=== PATIENT | female | born 1960 | race Caucasian/White ===

== ENCOUNTER 2016-12-22 15:50 | Emergency (ER) | payer SELFPAY ==
[~2016-12-22 15:50] MED LIST: CELEBREX200 MG PO; EFFEXOR25 MG PO; LYRICA100 MG PO; PREDNISONE20 MG PO; PROTONIX40 MG PO; VICODIN EQUIVAL1 TAB PO
--- NOTE | 2016-12-22 17:13 | DIAGNOSTIC IMAGING REPORT ---
PROCEDURE: XR ABD SERIES 2V ABD/1V CHEST INDICATION: ABDOMINAL PAIN TECHNIQUE: AP supine and upright views with PA view chest. COMPARISON: CT abdomen and pelvis 06/07/2015 FINDINGS: ABDOMEN: Bowel pattern is normal. No evidence of free air. Soft tissues and osseous structures are normal. CHEST: Lungs are clear. Heart and mediastinum are normal. Thorax is normal. IMPRESSION: 1. Negative acute abdomen series.
--- NOTE | 2016-12-22 17:56 | DIAGNOSTIC IMAGING REPORT ---
PROCEDURE: US ABDOMEN ULTRASOUND-LIMITED INDICATION: RUQ PAIN TECHNIQUE: Shelton scale and color Doppler sonographic images of the abdomen were obtained without comparison. COMPARISON: Abdominal CT 06/07/2015 FINDINGS: The liver is normal in size, contour, and echotexture. No mass or intrahepatic biliary dilatation. The gallbladder is normal without stones or sludge. The wall is normal thickness measuring 2.2 mm No pericholecystic fluid or Torres sign. The extrahepatic common duct is normal measuring 3.5 mm The pancreas was not well seen. The proximal abdominal aorta is normal in its course and caliber. The retrohepatic inferior vena cava is patent. There is appropriate hepatopetal flow in the portal vein. The right kidney measures 10 cm in length. IMPRESSION: 1. Normal abdominal ultrasound. pancreas not well seen.
--- NOTE | 2016-12-22 19:03 | DIAGNOSTIC IMAGING REPORT ---
PROCEDURE: CT ABD/PELVIS WITH CONTRAST CLINICAL INDICATION: Right lower quadrant pain x 3 days, initial encounter. TECHNIQUE: 145 ml of Isovue 300 were injected intravenously and axial images were obtained of the entire abdomen and pelvis with sagittal and coronal reformations. COMPARISON: Abdominal ultrasound of 12/22/[address] abdomen/pelvis 06/07/2015. FINDINGS: ABDOMEN: Lung base are clear. Heart size is normal. Liver, gallbladder, pancreas, spleen, adrenal glands and kidneys are normal. Normal abdominal aorta. Moderate stool. PELVIS: Normal appendix. Uterus, adnexa and bladder are normal. No free fluid or inflammatory changes. L5 laminectomy. Grade 1 L4-5 anterolisthesis. Severe L5-S1 disc space narrowing. IMPRESSION: 1. Normal appendix 2. Moderate stool 3. Results discussed with RAMON Kam. All CT scans at this facility use dose modulation, iterative reconstruction, and/or weight-based dosing when appropriate to reduce radiation dose to as low as reasonably achievable.
--- NOTE | 2016-12-22 19:08 | ED NURSING NOTES ---
Clinical Report - Nurses [facility] [address] [place] [address] 12/22/2016 15:51 Patient: KATIA HAYDEN TRIAGE Triage time 16:00. Acuity: LEVEL 3. Chief Complaint: ABDOMINAL PAIN and NAUSEA. 16:12 12/22/16. Alert. SEPSIS SCREEN: Sepsis Screen. Negative (no infection suspected/documented). MARIO COMA SCORE: [place] Coma Scale: 15- eyes open spontaneously (4); best verbal response- oriented x 4 (5); best motor response- obeys commands (6). --16:12 Thais Yoon R.N. 16:00 12/22/16. BP: 130/103. HR: 104. RR: 15. O2 saturation: 98%. Temp: 97.4 F. Pain level now: 05/06. --16:12 Thais Yoon R.N. Weight: 90.7 kg stated. Height/Length: 64 inches Per Patient. BMI: 34.3. --16:07 Thais Yoon R.N. Medications Lyrica Oral. --16:03 Thais Yoon R.N. Effexor XR Oral. --16:04 Thais Yoon R.N. Tramadol HCL Oral. --16:04 Thais Yoon R.N. LORazepam Oral. --16:04 Thais Yoon R.N. Allergies Aspirin. --16:04 Thais Yoon R.N. Naproxen. NSAIDs. --16:04 Thais Yoon R.N. History Arrived by private vehicle, and accompanied by family. Primary physician (Dr Martinez (retail coordinator)). This started today. ( Patient states she has had mild pain for the last 3 days. She states the pain has gotten severe in the past day.). Treatment BOX TURNER: (tramadol). PAST MEDICAL HX: Immunizations: up-to-date. SOCIAL HX: Never smoker. No alcohol use or drug use. FALL RISK ASSESSMENT: Fall risk assessment completed. No fall risk identified. NUTRITIONAL RISK ASSESSMENT: The nutritional risk assessment revealed no deficiencies. FUNCTIONAL ASSESSMENT: Functional assessment: no impairments noted. LEARNING NEEDS ASSESSMENT: The learning needs assessment revealed no barriers. SKIN INTEGRITY ASSESSMENT: Skin integrity risk assessment completed. No skin integrity risk identified. --16:12 Thais Yoon R.N. PROBLEMS: Atypical Chest Pain. Diabetes Mellitus. Leukocytosis. Hypokalemia. Pericardial effusion. Abdominal Pain. UTI - Urinary Tract Infection. Chest Pain. Tetanus Status. Laceration. Headache. Sinusitis. MRSA Infection. Rotator Cuff Injury. Tendonitis. Sprain. URI. Asthma. Fibromyalgia. Parotitis. Cellulitis. Anxiety Reaction. Bipolar Disorder. Depression. Hypertension. Restless Legs Syndrome. Abscess. Felon. Immunizations. LNMP - Last Normal Menstrual Period. --16:05 Thais Yoon R.N. Pneumonia [RuleOut]. Tong's Palsy [RuleOut]. Rotator Cuff Injury [RuleOut]. --16:05 Thais Yoon R.N. ADDITIONAL SURGERIES: Amputation finger. Back Surgery. Heart surgery. Lung Surgery. --16:05 Thais Yoon R.N. Interventions ID band on patient. To treatment room. --16:12 Thais Yoon R.N. PHYSICAL ASSESSMENT 16:12/22/16. GENERAL / NEURO / PSYCH: Alert. Oriented X 4. Appears in pain. HEENT: Mucous membranes are pink. RESPIRATORY: Respirations not labored. ( Respirations are unlabored except when patient becomes anxious.). CVS: Capillary refill less than 2 seconds. GI / : Abdomen soft and nontender. SKIN: Skin is warm and dry. --16:13 Thais Yoon R.N. NURSING PROGRESS NOTES 16:12/22/16. Two patient identifiers checked. Call light placed in reach. Side rails up x 2. Bed placed in lowest position. Brakes of bed on. --16:13 Thais Yoon R.N. 16:45 12/22/2016 Two (2) unsuccessful IV access attempts including the right forearm. --16:45 Thais Yoon R.N. 16:57 12/22/2016 Site #1 started via IV in the left antecubital space with an 20g angiocath; one attempt. Blood drawn: rainbow set. Labeled in the presence of the patient and sent to the lab. Saline lock flushed with 5 mL saline. --16:57 Thais Yoon R.N. <<STRICKEN ENTRY-- 16:57 12/22/2016 Dilaudid (HYDROmorphone HCl PF) IVP 1 mg given over 2 minute(s) via site #1. --16:57 Thais Yoon R.N. --END STRIKE>> Correction. --16:58 Thais Yoon R.N. 16:57 12/22/2016 Dilaudid (HYDROmorphone HCl PF) IVP 1 mg given over 2 minute(s) via site #1. Allergies verified, confirmed 5 rights and sedative warning given to the patient. IV patency established. IV site checked: no pain, redness, or swelling. IV flushed thoroughly pre- and post-medication administration. IVP given by RN. --16:58 Thais Yoon R.N. 17:08. Patient returned from radiology. --17:13 Thais Yoon R.N. 17:13 12/22/16. ( US in room). --17:13 Thais Yoon R.N. EKG time: (1640). EKG was ordered, performed by a tech and shown to the ED physician. --17:23 Mily Vega ER Tech1 16:13. Patient ID band checked for patient name and birthdate: patient confirmed. Clean catch urine collected with return of yellow-colored clear urine; sample sent to lab for urinalysis. Specimen labeled in the presence of the patient. --17:36 Thais Yono R.N. 17:53 12/22/16. Patient ID band checked for patient name and birthdate. Patient verbalized understanding. Clean catch urine collected with return of yellow-colored clear urine; sample sent to lab for urinalysis. Specimen labeled in the presence of the patient (urine recollection.). --17:53 Thais Yoon R.N. 18:02 12/22/16. --18:02 Thais Yoon R.N. 18:01 12/22/16. BP: 129/89. HR: 94. RR: 18. O2 saturation: 97%. Temp: deferred. Pain level now: 05/06. --18:02 Thais Yoon R.N. 19:02 12/22/16. Care transferred and report given (to MAINOR Winslow). --19:02 Thais Yoon R.N. ( report received from [facility]). --19:07 Isac Palomo 18:13 12/22/2016 Site #2 started via IV in the right forearm with an 22g angiocath, with aseptic technique and good blood return; two attempts. Saline lock flushed with 10 mL saline (unable to draw blood). --19:13 Carlos A Watkins R.N. DISPOSITION / DISCHARGE 19:23 12/22/2016 Site #1 removed upon discharge. Catheter intact. Bandaid applied. --19:23 Isac Palomo 19:23 12/22/2016 Site #2 removed upon admission. Catheter intact. Bandaid applied. --19:23 Isac Palomo Departure time: 19:23. Condition at departure: improved. No learning barriers present. Discharge instructions provided and reviewed with the patient. Reviewed medication(s) side effects, precautions, dosing and course information. Prescription(s) given to the patient. Treatments reviewed. Reviewed referrals. Follow up contact number. Patient verbalized understanding. Written instructions provided in German. No warning instructions, diet instructions, activity restrictions or stop smoking instructions. No work note given or school note given. The patient was discharged by the physician purchasing assistant. She was discharged home and accompanied by family. She left the Emergency Department ambulatory and via private vehicle. Family member driving. ( NS fluids stopped at this time). FALL RISK ASSESSMENT: Fall risk assessment completed. No fall risk identified. --19:23 Isac Palomo 19:20 12/22/16. BP: 141/72. HR: 75. RR: 18. O2 saturation: 98%. Temp: deferred. Pain level now: 11/06. --19:23 Isac Palomo Locked/Released at 12/22/2016 19:24 by Isac Palomo
--- NOTE | 2016-12-22 19:08 | ED ORDER SUMMARY ---
..... Patient: KATIA HAYDEN OrderSheet [facility] VisitID: [id number] [place] [address] 56y, F Registration Date/Time: 12/22/2016 ORDER SHEET Weight: 90.7 kg (stated) Allergies: Aspirin, Naproxen, NSAIDs GENERAL ORDERS: Abd Series 2V Abd/1V Chest Urgent (16:14 12/22/2016 EKoroleva P.A.-C) (Ack 16:28 KHoerner) (16:58 RMarsden R.N.) Urine Drug Screen Urgent (16:16 12/22/2016 EKoroleva P.A.-C) (Ack 16:28 KHoerner) (16:58 RMarsden R.N.) Urine Urgent (16:16 12/22/2016 EKoroleva P.A.-C) (Ack 16:28 KHoerner) (16:58 RMarsden R.N.) Lipase Urgent (16:16 12/22/2016 EKoroleva P.A.-C) (Ack 16:28 KHoerner) (16:58 RMarsden R.N.) (16:59 KWilliams R.N.) Amylase Urgent (16:16 12/22/2016 EKoroleva P.A.-C) (Ack 16:28 KHoerner) (16:58 RMarsden R.N.) (16:59 KWilliams R.N.) Cardiac Panel Stat (16:16 12/22/2016 EKoroleva P.A.-C) (Ack 16:28 KHoerner) (16:58 RMarsden R.N.) (16:59 KWilliams R.N.) PT with INR Urgent (16:16 12/22/2016 EKoroleva P.A.-C) (Ack 16:28 KHoerner) (16:58 RMarsden R.N.) (16:59 KWilliams R.N.) PTT Urgent (16:16 12/22/2016 EKoroleva P.A.-C) (Ack 16:28 KHoerner) (16:58 RMarsden R.N.) (16:59 KWilliams R.N.) Sed Rate Urgent (16:16 12/22/2016 EKoroleva P.A.-C) (Ack 16:28 KHoerner) (16:58 RMarsden R.N.) (16:59 KWilliams R.N.) CRP Urgent (16:16 12/22/2016 EKoroleva P.A.-C) (Ack 16:28 KHoerner) (16:58 RMarsden R.N.) (16:59 KWilliams R.N.) Lactate, Serum Urgent (16:17 12/22/2016 EKoroleva P.A.-C) (Ack 16:28 KHoerner) (18:58 RMarsden R.N.) PCT (Procalcitonin) Urgent (16:17 12/22/2016 EKoroleva P.A.-C) (Ack 16:28 KHoerner) (16:58 RMarsden R.N.) (16:59 KWilliams R.N.) UA-Culture if indicated Urgent (16:17 12/22/2016 EKoroleva P.A.-C) (Ack 16:28 KHoerner) (16:58 RMarsden R.N.) Director Of Finance (Continuous) (16:17 12/22/2016 EKoroleva P.A.-C) (Ack 16:28 KHoerner) EKG - ER Stat (16:17 12/22/2016 EKoroleva P.A.-C) (Ack 16:28 oerner) (16:44 KHoerner) US Abdomen Limited (No) Urgent (16:51 12/22/2016 EKoroleva P.A.-C) (Ack 17:08 LNations ER Tech1) (17:13 RMarsden R.N.) Vitals (17:30 12/22/2016 EKoroleva P.A.-C) (Ack 17:44 RMarsden R.N.) (17:45 RMarsden R.N.) CT Abd/Pel w Cont (No) (see lab) Urgent (18:27 12/22/2016 EKoroleva P.ARose-C) (Ack 18:28 LNations ER Tech1) (18:47 MCampbell) CT Abd/Pel w Cont (No) (see lab) Urgent (18:31 12/22/2016 Dominique Chang.A.-C) (18:58 RMarsden R.N.) MEDICATION ORDERS: IV FLUIDS: IV NS : initial bolus 500 mL (1000 mL/hr), then 10 mL/hr for X1 (NOW) (16:14 12/22/2016 Dominique Chang.ARose-C) (Ack 16:17 RMarsden R.N.) Dilaudid IV 1 mg (HIGH ALERT MEDICATION, NOW) (16:16 12/22/2016 Dominique Huynh-Trung) (Ack 16:17 RMarsden R.N.) (16:57 RMarsden R.N.) ORDER SHEET NOTES: [Electronically signed by Nayla Zimmerman R.N. (19:24 12/22/2016)] [Electronically signed by Mora Freitas P.A.-C (19:37 12/22/2016)] [Electronically locked/signed by Nayla Zimmerman R.N. (19:24 12/22/2016)]
--- NOTE | 2016-12-22 19:08 | ED CLINICAL REPORT ---
Clinical Report - Physicians/Mid Levels [facility] [address] [place] [place] [address] 12/22/2016 15:51 Patient: KATIA HAYDEN Time Seen: 2016. Arrived- By private vehicle. Historian- patient. HISTORY OF PRESENT ILLNESS Chief Complaint: ABDOMINAL PAIN. This started 3 days and is still present. It is described as "pain" and it is described as located in the right flank and the right abdomen. The patient has had nausea. No loss of appetite, vomiting or diarrhea. (patient reports her abdominal pain over the last 3 days, worsening of such. Patient reports previous history of pancreatitis. Patient denies any urgency or frequency. Denies any shortness of breath or chest pain. Reports possible history of OR in the past. Patient lives in [place], here visiting.). REVIEW OF SYSTEMS No constipation, black stools, difficulty with urination, pain with urination or fever. No chest pain, difficulty breathing or chills. All systems otherwise negative, except as recorded above. PAST HISTORY Problems: Atypical Chest Pain. Diabetes Mellitus. Leukocytosis. Hypokalemia. Pericardial effusion. Abdominal Pain. UTI - Urinary Tract Infection. Chest Pain. Tetanus Status. Laceration. Headache. Sinusitis. MRSA Infection. Rotator Cuff Injury. Tendonitis. Sprain. URI. Asthma. Fibromyalgia. Parotitis. Cellulitis. Anxiety Reaction. Bipolar Disorder. Depression. Hypertension. Restless Legs Syndrome. Abscess. Felon. Immunizations. LNMP - Last Normal Menstrual Period. Additional Surgeries: Amputation finger. Back Surgery. Heart surgery. Lung Surgery. Medications: LORazepam Oral. Tramadol HCL Oral. Effexor XR Oral. Lyrica Oral. Allergies: Aspirin. Naproxen. NSAIDs. SOCIAL HISTORY Never smoker. No alcohol use or drug use. ADDITIONAL NOTES The nursing notes have been reviewed. PHYSICAL EXAM Vital Signs: 12/22/2016 16:00 BP: 130/103. HR: 104. RR: 15. O2 saturation: 98%. Temp: 97.4 F. Pain level now: 8/10. Appearance: Alert. Anxious. Appears to be in pain. Patient in mild distress. Eyes: Eyes normal inspection. ENT: Ears normal. Nose normal. Neck: Normal inspection. No lymphadenopathy or thyromegaly. CVS: Normal heart rate and rhythm. Heart sounds normal. Respiratory: No respiratory distress. Abdomen: Soft. Mild tenderness in the right upper quadrant. No guarding, rebound tenderness or Torres's or obturator sign present. Bowel sounds normal. Back: Normal inspection. Rectal: No abnormal findings on digital exam. Skin: Skin warm. Normal skin color. Neuro: Oriented X 3. No motor deficit. LABS, X-RAYS, AND EKG EKG: EKG time: (1640). No acute process. No acute ischemia. Normal EKG. Rate: 94. 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 EKG unchanged when compared with prior EKG. (04/03/16). The study has been interpreted contemporaneously. The EKG appears to be a good tracing. KUB: (IMPRESSION: 1. Negative acute abdomen series. Electronically Final signed by:Kevan Ibarra MD 12/22/2016 5:13:45 PM). Abdominal CT: IMPRESSION: 1. Normal appendix 2. Moderate stool 3. Results discussed with RAMON Kam. All CT scans at this facility use dose modulation, iterative reconstruction, and/or weight-based dosing when appropriate to reduce radiation dose to as low as reasonably achievable. Electronically Final signed by:Rich Lomeli MD 12/22/2016 7:03:06 PM. Laboratory Tests: UA-Culture if indicated: (JANN: 12/22/2016 17:50) ( MsgRcvd 12/22/2016 18:20) Final results Test Result Flag Units (Reference) URINE COLOR YELLOW URINE APPEARANCE CLEAR URINE GLUCOSE NEGATIVE (NEGATIVE) URINE BILIRUBIN NEGATIVE (NEGATIVE) URINE KETONE NEGATIVE (NEGATIVE) URINE SPECIFIC GRAVITY <= 1.005 L (1.010-1.030) URINE PH 5.5 (5.0-8.0) URINE PROTEIN NEGATIVE (NEGATIVE) URINE UROBILINOGEN 0.2 EU/dL (0.2-1.0) URINE NITRITE NEGATIVE (NEGATIVE) URINE BLOOD NEGATIVE (NEGATIVE) URINE LEUK ESTERASE NEGATIVE (NEGATIVE) URINE RBC NONE SEEN rbc/hpf (0-1) URINE WBC 0-1 wbc/hpf (0-1) URINE EPITHELIAL CELLS 1-3 EPI/hpf (0-5) URINE BACTERIA TRACE (<1+) (NONE SEEN) URINE COMMENT CULT NOT INDICATED URINE CULTURES ARE SET-UP BASED ON THE FOLLOWING CRITERIA:POSITIVE NITRITEPOSITIVE LEUKOCYTE ESTERASEGREATER THAN 10 WHITE BLOOD CELLSMODERATE (2+) OR GREATER BACTERIA Urine: (JANN: 12/22/2016 17:50) ( [facility] [place] 18:00) Final results Test Result Flag Units (Reference) URINE NEGATIVE ESR: (JANN: 12/22/2016 16:53) ( [facility] 12/22/2016 17:25) Final results Test Result Flag Units (Reference) SED RATE WESTERGREN 15 mm/hr (0-30) CBC w Diff: (JANN: 12/22/2016 16:53) ( [facility] [place]/22/2016 17:04) Final results Test Result Flag Units (Reference) WHITE BLOOD COUNT 4.9 K/uL (4.5-11.5) RED BLOOD COUNT 4.04 M/uL (4.00-5.20) HEMOGLOBIN 13.0 gm/dL (12.0-16.0) HEMATOCRIT 38.5 % (36.0-46.0) MEAN CELL VOLUME 95 fL (80-100) MEAN CORPUSCULAR HGB 32 pg (26-34) MEAN CORPUSCULAR HGB CONC 34 g/dL (31-37) RED CELL DISTRIBUTION WIDTH 14.1 % (11.6-14.8) PLATELET COUNT 201 K/uL (150-400) NEUTROPHIL % 49.2 L % (50-75) LYMPH % 37.7 % (25-40) MONO % 11.5 % (3-14) EOSINOPHIL % 1.0 % (0-4) BASOPHIL % 0.6 % (0-2) PT with INR: (JANN: 12/22/2016 16:53) ( [facility] [place] 17:11) Final results Test Result Flag Units (Reference) INR 0.9 (0.8-1.2) Low Intensity Therapy: INR 1.5-2.0 PT range 18.5-23.1Mod.Intensity Therapy: INR 2.0-3.0 PT range 23.1-31.5High Intensity Therapy: INR 2.5-3.5 PT range 27.4-35.5High Intensity Therapy 2: INR 3.0-4.0 PT range 31.5-39.3 APTT 27 SECONDS (24-34) Lactate, Serum: (JANN: 12/22/2016 17:45) ( [facility] 12/22/2016 18:16) Final results Test Result Flag Units (Reference) LACTIC ACID 1.1 mmol/L (0.4-2.0) [id number]: (JANN: 12/22/2016 16:53) ( [facility] 12/22/2016 17:48) Final results Test Result Flag Units (Reference) PROCALCITONIN <0.5 ng/mL (0-0.5) PCT Concentration: Interpretation : Risk/option for action PCT <=0.5 ng/mL : Systemic : Low risk forinfection(sepsis): progression to severeis not likely. : systemic infection.Local bacterial : CAUTION-PCT levelsinfection is : below 0.5 ng/mL do notpossible. : exclude an infection,because localizedinfections (withoutsystemic signs) may beassociated with suchlow levels. If PCT ismeasured very earlyafter a bacterialchallenge (usually <6hours), these valuesmay still be low. Inthis case PCT shouldbe re-assessed 6-24hours later. PCT >0.5 and : Systemic infection: Moderate risk for<= 2 ng/mL : (sepsis) is : progression to severepossible, but : systemic infection.other conditions : The patient should beare known to : closely monitoredelevate PCT. : both clinically andby re-assessing PCTwithin 6-24 hours. PCT > 2 ng/mL : Systemic infection: High risk for(sepsis) is likely: progression to severeunless other : systemic infection.causes are known. : PCT >= 10 ng/mL : Important systemic: High likelihood ofinflammatory : severe sepsis orresponse, almost : septic shock.exclusively due to:severe bacterial :sepsis or septic :shock. : Urine Drug Screen: (JANN: 12/22/2016 17:50) ( MsgRcvd 12/22/2016 18:27) Final results Test Result Flag Units (Reference) AMPHETAMINE/METHAMPHETAMINE NEGATIVE (NEGATIVE) BARBITURATE NEGATIVE (NEGATIVE) BENZODIAZEPINE NEGATIVE (NEGATIVE) CANNABINOID NEGATIVE (NEGATIVE) COCAINE NEGATIVE (NEGATIVE) ECSTASY NEGATIVE (NEGATIVE) METHADONE NEGATIVE (NEGATIVE) OPIATE POSITIVE H (NEGATIVE) The urine drug screen is a qualitative screening test fordrug overdose and abuse. All screen results should beconsidered as presumptive.Drugs screened for are as follows:BenzodiazepinesCocaineAmphetamines/MetamphetaminesTHC (Tetrahydrocannabinol)OpiatesBarbituratesEcstasyMethadonePositive results are unconfirmed. For confirmation, notifythe lab for the specimen to be sent to the reference lab.All confirmations must be performed by a differentmethodology.The ingestion of natural herbal and plant productscontaining Ephedra/Ephedra metabolites can produce in urineone or more substances capable of cross reacting withamphetamine/methamphetamine immunoassays. These testsprovide a preliminary result only. A more specificalternative chemical method must be used to obtain aconfirmed analytical result. CHEM 13 PANEL: (JANN: 12/22/2016 16:53) ( MsgRcvd 12/22/2016 17:41) Final results Test Result Flag Units (Reference) GLUCOSE 93 mg/dL (70-110) BUN 11 mg/dL (7-18) CREATININE 0.9 mg/dL (0.6-1.3) Estimated GFR >60 mL/min Estimated GFR- >60 mL/min Note: Persistent reduction over 3 months in eGFR<60 mL/min/1.73 m2 defines CKD. Patients with eGFR values>=60 mL/min/1.73 m2 may also have CKD if evidence ofpersistent proteinuria. Additional information may be foundat www.kidney.org. SODIUM 144 mmol/L (136-145) POTASSIUM 3.4 L mmol/L (3.5-5.1) CHLORIDE 106 mmol/L (98-107) CARBON DIOXIDE 26 mmol/L (21-32) CALCIUM 8.9 mg/dL (8.5-10.1) TOTAL PROTEIN 6.7 g/dL (6.4-8.2) ALBUMIN 3.5 g/dL (3.3-5.0) BILIRUBIN, TOTAL 0.2 mg/dL (0.0-1.0) ALKALINE PHOSPHATASE 80 U/L (46-116) AST (SGOT) 16 U/L (15-37) ALT (SGPT) 38 U/L (12-78) MAGNESIUM 1.8 mg/dL (1.8-2.4) LIPASE 197 U/L (73-393) AMYLASE 52 U/L (25-115) CPK 81 U/L (24-260) TROPONIN I <0.05 ng/mL (0.00-1.5) TROPONIN REFERENCE RANGE:<0.1 NEGATIVE0.1-1.5 INDETERMINANT>1.5 POSITIVE C-REACTIVE PROTEIN 0.8 mg/dL (0.0-0.9) . PROGRESS AND PROCEDURES Course of Care: Patient here in the ER with flank pain, reproducible on exam. No shortness of breath or chest pain. EKG unremarkable, extensive workup here in the ER is largely unremarkable, unclear cause of her pain, she is distractible from the pain. Patient is stable. At this time given negative ultrasound, negative x-ray, suspicion for acutesurgical abdomen is low. Ongoing pain for 3 days. Negative troponin. 12/22/2016 19:21 BP: 141/72. HR: 75. RR: 18. O2 saturation: 98%. Pain level now: 2/10. Patient is stable. Physical exam findings are improved. Symptoms better. Patient/family counseled. Disposition: Discharged. CLINICAL IMPRESSION Acute right upper quadrant and right lower quadrant abdominal pain of unknown cause. INSTRUCTIONS Drink plenty of fluids. Prescription Medications: Hydrocodone/APAP 5mg / 325mg: take 1 orally every 6 hours as needed for pain. Dispense ten (10). No refill. Follow-up: Follow up with your doctor in three days. (Electronically signed by Mora Freitas P.A.-C 12/22/2016 19:37)
--- NOTE | 2016-12-22 19:08 | ED ORDER SUMMARY ---
..... Patient: KATIA HAYDEN OrderSheet [facility] VisitID: [id number] [place] [address] 56y, F Registration Date/Time: 12/22/2016 ORDER SHEET Weight: 90.7 kg (stated) Allergies: Aspirin, Naproxen, NSAIDs GENERAL ORDERS: Abd Series 2V Abd/1V Chest Urgent (16:14 12/22/2016 EKoroleva P.A.-C) (Ack 16:28 KHoerner) (16:58 RMarsden R.N.) Urine Drug Screen Urgent (16:16 12/22/2016 EKoroleva P.A.-C) (Ack 16:28 KHoerner) (16:58 RMarsden R.N.) Urine Urgent (16:16 12/22/2016 EKoroleva P.A.-C) (Ack 16:28 KHoerner) (16:58 RMarsden R.N.) Lipase Urgent (16:16 12/22/2016 EKoroleva P.A.-C) (Ack 16:28 KHoerner) (16:58 RMarsden R.N.) (16:59 KWilliams R.N.) Amylase Urgent (16:16 12/22/2016 EKoroleva P.A.-C) (Ack 16:28 KHoerner) (16:58 RMarsden R.N.) (16:59 KWilliams R.N.) Cardiac Panel Stat (16:16 12/22/2016 EKoroleva P.A.-C) (Ack 16:28 KHoerner) (16:58 RMarsden R.N.) (16:59 KWilliams R.N.) PT with INR Urgent (16:16 12/22/2016 EKoroleva P.A.-C) (Ack 16:28 KHoerner) (16:58 RMarsden R.N.) (16:59 KWilliams R.N.) PTT Urgent (16:16 12/22/2016 EKoroleva P.A.-C) (Ack 16:28 KHoerner) (16:58 RMarsden R.N.) (16:59 KWilliams R.N.) Sed Rate Urgent (16:16 12/22/2016 EKoroleva P.A.-C) (Ack 16:28 KHoerner) (16:58 RMarsden R.N.) (16:59 KWilliams R.N.) CRP Urgent (16:16 12/22/2016 EKoroleva P.A.-C) (Ack 16:28 KHoerner) (16:58 RMarsden R.N.) (16:59 KWilliams R.N.) Lactate, Serum Urgent (16:17 12/22/2016 EKoroleva P.A.-C) (Ack 16:28 KHoerner) (18:58 RMarsden R.N.) PCT (Procalcitonin) Urgent (16:17 12/22/2016 EKoroleva P.A.-C) (Ack 16:28 KHoerner) (16:58 RMarsden R.N.) (16:59 KWilliams R.N.) UA-Culture if indicated Urgent (16:17 12/22/2016 EKoroleva P.A.-C) (Ack 16:28 KHoerner) (16:58 RMarsden R.N.) Router Machine Operator (Continuous) (16:17 12/22/2016 EKoroleva P.A.-C) (Ack 16:28 KHoerner) EKG - ER Stat (16:17 12/22/2016 EKoroleva P.A.-C) (Ack 16:28 oerner) (16:44 KHoerner) US Abdomen Limited (No) Urgent (16:51 12/22/2016 EKoroleva P.A.-C) (Ack 17:08 LNations ER Tech1) (17:13 RMarsden R.N.) Vitals (17:30 12/22/2016 EKoroleva P.A.-C) (Ack 17:44 RMarsden R.N.) (17:45 RMarsden R.N.) CT Abd/Pel w Cont (No) (see lab) Urgent (18:27 12/22/2016 EKoroleva P.ARose-C) (Ack 18:28 LNations ER Tech1) (18:47 MCampbell) CT Abd/Pel w Cont (No) (see lab) Urgent (18:31 12/22/2016 Dominique Chang.A.-C) (18:58 RMarsden R.N.) MEDICATION ORDERS: IV FLUIDS: IV NS : initial bolus 500 mL (1000 mL/hr), then 10 mL/hr for X1 (NOW) (16:14 12/22/2016 Dominique Chang.ARose-C) (Ack 16:17 RMarsden R.N.) Dilaudid IV 1 mg (HIGH ALERT MEDICATION, NOW) (16:16 12/22/2016 Dominique Huynh-Trung) (Ack 16:17 RMarsden R.N.) (16:57 RMarsden R.N.) ORDER SHEET NOTES: [Electronically signed by Nayla Zimmerman R.N. (19:24 12/22/2016)] [Electronically signed by Mora Freitas P.A.-C (19:37 12/22/2016)] [Electronically locked/signed by Nayla Zimmerman R.N. (19:24 12/22/2016)]
--- NOTE | 2016-12-22 19:08 | ED CLINICAL REPORT ---
Clinical Report - Physicians/Mid Levels [facility] [address] [place] [address] 12/22/2016 15:51 Patient: KATIA HAYDEN Time Seen: 2016. Arrived- By private vehicle. Historian- patient. HISTORY OF PRESENT ILLNESS Chief Complaint: ABDOMINAL PAIN. This started 3 days and is still present. It is described as "pain" and it is described as located in the right flank and the right abdomen. The patient has had nausea. No loss of appetite, vomiting or diarrhea. (patient reports her abdominal pain over the last 3 days, worsening of such. Patient reports previous history of pancreatitis. Patient denies any urgency or frequency. Denies any shortness of breath or chest pain. Reports possible history of NE in the past. Patient lives in [place], here visiting.). REVIEW OF SYSTEMS No constipation, black stools, difficulty with urination, pain with urination or fever. No chest pain, difficulty breathing or chills. All systems otherwise negative, except as recorded above. PAST HISTORY Problems: Atypical Chest Pain. Diabetes Mellitus. Leukocytosis. Hypokalemia. Pericardial effusion. Abdominal Pain. UTI - Urinary Tract Infection. Chest Pain. Tetanus Status. Laceration. Headache. Sinusitis. MRSA Infection. Rotator Cuff Injury. Tendonitis. Sprain. URI. Asthma. Fibromyalgia. Parotitis. Cellulitis. Anxiety Reaction. Bipolar Disorder. Depression. Hypertension. Restless Legs Syndrome. Abscess. Felon. Immunizations. LNMP - Last Normal Menstrual Period. Additional Surgeries: Amputation finger. Back Surgery. Heart surgery. Lung Surgery. Medications: LORazepam Oral. Tramadol HCL Oral. Effexor XR Oral. Lyrica Oral. Allergies: Aspirin. Naproxen. NSAIDs. SOCIAL HISTORY Never smoker. No alcohol use or drug use. ADDITIONAL NOTES The nursing notes have been reviewed. PHYSICAL EXAM Vital Signs: 12/22/2016 16:00 BP: 130/103. HR: 104. RR: 15. O2 saturation: 98%. Temp: 97.4 F. Pain level now: 8/10. Appearance: Alert. Anxious. Appears to be in pain. Patient in mild distress. Eyes: Eyes normal inspection. ENT: Ears normal. Nose normal. Neck: Normal inspection. No lymphadenopathy or thyromegaly. CVS: Normal heart rate and rhythm. Heart sounds normal. Respiratory: No respiratory distress. Abdomen: Soft. Mild tenderness in the right upper quadrant. No guarding, rebound tenderness or Torres's or obturator sign present. Bowel sounds normal. Back: Normal inspection. Rectal: No abnormal findings on digital exam. Skin: Skin warm. Normal skin color. Neuro: Oriented X 3. No motor deficit. LABS, X-RAYS, AND EKG EKG: EKG time: (1640). No acute process. No acute ischemia. Normal EKG. Rate: 94. 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 EKG unchanged when compared with prior EKG. (04/03/16). The study has been interpreted contemporaneously. The EKG appears to be a good tracing. KUB: (IMPRESSION: 1. Negative acute abdomen series. Electronically Final signed by:Kevan Ibarra MD 12/22/2016 5:13:45 PM). Abdominal CT: IMPRESSION: 1. Normal appendix 2. Moderate stool 3. Results discussed with RAMON Kam. All CT scans at this facility use dose modulation, iterative reconstruction, and/or weight-based dosing when appropriate to reduce radiation dose to as low as reasonably achievable. Electronically Final signed by:Rich Lomeli MD 12/22/2016 7:03:06 PM. Laboratory Tests: UA-Culture if indicated: (JANN: 12/22/2016 17:50) ( MsgRcvd 12/22/2016 18:20) Final results Test Result Flag Units (Reference) URINE COLOR YELLOW URINE APPEARANCE CLEAR URINE GLUCOSE NEGATIVE (NEGATIVE) URINE BILIRUBIN NEGATIVE (NEGATIVE) URINE KETONE NEGATIVE (NEGATIVE) URINE SPECIFIC GRAVITY <= 1.005 L (1.010-1.030) URINE PH 5.5 (5.0-8.0) URINE PROTEIN NEGATIVE (NEGATIVE) URINE UROBILINOGEN 0.2 EU/dL (0.2-1.0) URINE NITRITE NEGATIVE (NEGATIVE) URINE BLOOD NEGATIVE (NEGATIVE) URINE LEUK ESTERASE NEGATIVE (NEGATIVE) URINE RBC NONE SEEN rbc/hpf (0-1) URINE WBC 0-1 wbc/hpf (0-1) URINE EPITHELIAL CELLS 1-3 EPI/hpf (0-5) URINE BACTERIA TRACE (<1+) (NONE SEEN) URINE COMMENT CULT NOT INDICATED URINE CULTURES ARE SET-UP BASED ON THE FOLLOWING CRITERIA:POSITIVE NITRITEPOSITIVE LEUKOCYTE ESTERASEGREATER THAN 10 WHITE BLOOD CELLSMODERATE (2+) OR GREATER BACTERIA Urine: (JANN: 12/22/2016 17:50) ( [facility] 12/22/2016 18:00) Final results Test Result Flag Units (Reference) URINE NEGATIVE ESR: (JANN: 12/22/2016 16:53) ( [facility] 12/22/2016 17:25) Final results Test Result Flag Units (Reference) SED RATE WESTERGREN 15 mm/hr (0-30) CBC w Diff: (JANN: 12/22/2016 16:53) ( [facility] 12/22/2016 17:04) Final results Test Result Flag Units (Reference) WHITE BLOOD COUNT 4.9 K/uL (4.5-11.5) RED BLOOD COUNT 4.04 M/uL (4.00-5.20) HEMOGLOBIN 13.0 gm/dL (12.0-16.0) HEMATOCRIT 38.5 % (36.0-46.0) MEAN CELL VOLUME 95 fL (80-100) MEAN CORPUSCULAR HGB 32 pg (26-34) MEAN CORPUSCULAR HGB CONC 34 g/dL (31-37) RED CELL DISTRIBUTION WIDTH 14.1 % (11.6-14.8) PLATELET COUNT 201 K/uL (150-400) NEUTROPHIL % 49.2 L % (50-75) LYMPH % 37.7 % (25-40) MONO % 11.5 % (3-14) EOSINOPHIL % 1.0 % (0-4) BASOPHIL % 0.6 % (0-2) PT with INR: (JANN: 12/22/2016 16:53) ( [facility] 12/22/2016 17:11) Final results Test Result Flag Units (Reference) INR 0.9 (0.8-1.2) Low Intensity Therapy: INR 1.5-2.0 PT range 18.5-23.1Mod.Intensity Therapy: INR 2.0-3.0 PT range 23.1-31.5High Intensity Therapy: INR 2.5-3.5 PT range 27.4-35.5High Intensity Therapy 2: INR 3.0-4.0 PT range 31.5-39.3 APTT 27 SECONDS (24-34) Lactate, Serum: (JANN: 12/22/2016 17:45) ( [facility] 12/22/2016 18:16) Final results Test Result Flag Units (Reference) LACTIC ACID 1.1 mmol/L (0.4-2.0) [id number]: (JANN: 12/22/2016 16:53) ( [facility] 12/22/2016 17:48) Final results Test Result Flag Units (Reference) PROCALCITONIN <0.5 ng/mL (0-0.5) PCT Concentration: Interpretation : Risk/option for action PCT <=0.5 ng/mL : Systemic : Low risk forinfection(sepsis): progression to severeis not likely. : systemic infection.Local bacterial : CAUTION-PCT levelsinfection is : below 0.5 ng/mL do notpossible. : exclude an infection,because localizedinfections (withoutsystemic signs) may beassociated with suchlow levels. If PCT ismeasured very earlyafter a bacterialchallenge (usually <6hours), these valuesmay still be low. Inthis case PCT shouldbe re-assessed 6-24hours later. PCT >0.5 and : Systemic infection: Moderate risk for<= 2 ng/mL : (sepsis) is : progression to severepossible, but : systemic infection.other conditions : The patient should beare known to : closely monitoredelevate PCT. : both clinically andby re-assessing PCTwithin 6-24 hours. PCT > 2 ng/mL : Systemic infection: High risk for(sepsis) is likely: progression to severeunless other : systemic infection.causes are known. : PCT >= 10 ng/mL : Important systemic: High likelihood ofinflammatory : severe sepsis orresponse, almost : septic shock.exclusively due to:severe bacterial :sepsis or septic :shock. : Urine Drug Screen: (JANN: 12/22/2016 17:50) ( MsgRcvd 12/22/2016 18:27) Final results Test Result Flag Units (Reference) AMPHETAMINE/METHAMPHETAMINE NEGATIVE (NEGATIVE) BARBITURATE NEGATIVE (NEGATIVE) BENZODIAZEPINE NEGATIVE (NEGATIVE) CANNABINOID NEGATIVE (NEGATIVE) COCAINE NEGATIVE (NEGATIVE) ECSTASY NEGATIVE (NEGATIVE) METHADONE NEGATIVE (NEGATIVE) OPIATE POSITIVE H (NEGATIVE) The urine drug screen is a qualitative screening test fordrug overdose and abuse. All screen results should beconsidered as presumptive.Drugs screened for are as follows:BenzodiazepinesCocaineAmphetamines/MetamphetaminesTHC (Tetrahydrocannabinol)OpiatesBarbituratesEcstasyMethadonePositive results are unconfirmed. For confirmation, notifythe lab for the specimen to be sent to the reference lab.All confirmations must be performed by a differentmethodology.The ingestion of natural herbal and plant productscontaining Ephedra/Ephedra metabolites can produce in urineone or more substances capable of cross reacting withamphetamine/methamphetamine immunoassays. These testsprovide a preliminary result only. A more specificalternative chemical method must be used to obtain aconfirmed analytical result. CHEM 13 PANEL: (JANN: 12/22/2016 16:53) ( MsgRcvd 12/22/2016 17:41) Final results Test Result Flag Units (Reference) GLUCOSE 93 mg/dL (70-110) BUN 11 mg/dL (7-18) CREATININE 0.9 mg/dL (0.6-1.3) Estimated GFR >60 mL/min Estimated GFR- >60 mL/min Note: Persistent reduction over 3 months in eGFR<60 mL/min/1.73 m2 defines CKD. Patients with eGFR values>=60 mL/min/1.73 m2 may also have CKD if evidence ofpersistent proteinuria. Additional information may be foundat www.kidney.org. SODIUM 144 mmol/L (136-145) POTASSIUM 3.4 L mmol/L (3.5-5.1) CHLORIDE 106 mmol/L (98-107) CARBON DIOXIDE 26 mmol/L (21-32) CALCIUM 8.9 mg/dL (8.5-10.1) TOTAL PROTEIN 6.7 g/dL (6.4-8.2) ALBUMIN 3.5 g/dL (3.3-5.0) BILIRUBIN, TOTAL 0.2 mg/dL (0.0-1.0) ALKALINE PHOSPHATASE 80 U/L (46-116) AST (SGOT) 16 U/L (15-37) ALT (SGPT) 38 U/L (12-78) MAGNESIUM 1.8 mg/dL (1.8-2.4) LIPASE 197 U/L (73-393) AMYLASE 52 U/L (25-115) CPK 81 U/L (24-260) TROPONIN I <0.05 ng/mL (0.00-1.5) TROPONIN REFERENCE RANGE:<0.1 NEGATIVE0.1-1.5 INDETERMINANT>1.5 POSITIVE C-REACTIVE PROTEIN 0.8 mg/dL (0.0-0.9) . PROGRESS AND PROCEDURES Course of Care: Patient here in the ER with flank pain, reproducible on exam. No shortness of breath or chest pain. EKG unremarkable, extensive workup here in the ER is largely unremarkable, unclear cause of her pain, she is distractible from the pain. Patient is stable. At this time given negative ultrasound, negative x-ray, suspicion for acutesurgical abdomen is low. Ongoing pain for 3 days. Negative troponin. 12/22/2016 19:21 BP: 141/72. HR: 75. RR: 18. O2 saturation: 98%. Pain level now: 2/10. Patient is stable. Physical exam findings are improved. Symptoms better. Patient/family counseled. Disposition: Discharged. CLINICAL IMPRESSION Acute right upper quadrant and right lower quadrant abdominal pain of unknown cause. INSTRUCTIONS Drink plenty of fluids. Prescription Medications: Hydrocodone/APAP 5mg / 325mg: take 1 orally every 6 hours as needed for pain. Dispense ten (10). No refill. Follow-up: Follow up with your doctor in three days. (Electronically signed by Mora Freitas P.A.-C 12/22/2016 19:37)
--- NOTE | 2016-12-22 19:08 | ED NURSING NOTES ---
Clinical Report - Nurses [facility] [address] [place] [address] 12/22/2016 15:51 Patient: KATIA HAYDEN TRIAGE Triage time 16:00. Acuity: LEVEL 3. Chief Complaint: ABDOMINAL PAIN and NAUSEA. 16:12 12/22/16. Alert. SEPSIS SCREEN: Sepsis Screen. Negative (no infection suspected/documented). MARIO COMA SCORE: [place] Scale: 15- eyes open spontaneously (4); best verbal response- oriented x 4 (5); best motor response- obeys commands (6). --16:12 Thais Yoon R.N. 16:00 12/22/16. BP: 130/103. HR: 104. RR: 15. O2 saturation: 98%. Temp: 97.4 F. Pain level now: 05/06. --16:12 Thais Yoon R.N. Weight: 90.7 kg stated. Height/Length: 64 inches Per Patient. BMI: 34.3. --16:07 Thais Yoon R.N. Medications Lyrica Oral. --16:03 Thais Yoon R.N. Effexor XR Oral. --16:04 Thais Yoon R.N. Tramadol HCL Oral. --16:04 Thais Yoon R.N. LORazepam Oral. --16:04 Thais Yoon R.N. Allergies Aspirin. --16:04 Thais Yoon R.N. Naproxen. NSAIDs. --16:04 Thais Yoon R.N. History Arrived by private vehicle, and accompanied by family. Primary physician (Dr Matrinez (manager qa)). This started today. ( Patient states she has had mild pain for the last 3 days. She states the pain has gotten severe in the past day.). 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 PAST MEDICAL HX: Immunizations: up-to-date. SOCIAL HX: Never smoker. No alcohol use or drug use. FALL RISK ASSESSMENT: Fall risk assessment completed. No fall risk identified. NUTRITIONAL RISK ASSESSMENT: The nutritional risk assessment revealed no deficiencies. FUNCTIONAL ASSESSMENT: Functional assessment: no impairments noted. LEARNING NEEDS ASSESSMENT: The learning needs assessment revealed no barriers. SKIN INTEGRITY ASSESSMENT: Skin integrity risk assessment completed. No skin integrity risk identified. --16:12 Thais Yoon R.N. PROBLEMS: Atypical Chest Pain. Diabetes Mellitus. Leukocytosis. Hypokalemia. Pericardial effusion. Abdominal Pain. UTI - Urinary Tract Infection. Chest Pain. Tetanus Status. Laceration. Headache. Sinusitis. MRSA Infection. Rotator Cuff Injury. Tendonitis. Sprain. URI. Asthma. Fibromyalgia. Parotitis. Cellulitis. Anxiety Reaction. Bipolar Disorder. Depression. Hypertension. Restless Legs Syndrome. Abscess. Felon. Immunizations. LNMP - Last Normal Menstrual Period. --16:05 Thais Yoon R.N. Pneumonia [RuleOut]. Tong's Palsy [RuleOut]. Rotator Cuff Injury [RuleOut]. --16:05 Thais Yoon R.N. ADDITIONAL SURGERIES: Amputation finger. Back Surgery. Heart surgery. Lung Surgery. --16:05 Thais Yoon R.N. Interventions ID band on patient. To treatment room. --16:12 Thais Yoon R.N. PHYSICAL ASSESSMENT 16:12/22/16. GENERAL / NEURO / PSYCH: Alert. Oriented X 4. Appears in pain. HEENT: Mucous membranes are pink. RESPIRATORY: Respirations not labored. ( Respirations are unlabored except when patient becomes anxious.). CVS: Capillary refill less than 2 seconds. GI / : Abdomen soft and nontender. SKIN: Skin is warm and dry. --16:13 Thais Yoon R.N. NURSING PROGRESS NOTES 16:12/22/16. Two patient identifiers checked. Call light placed in reach. Side rails up x 2. Bed placed in lowest position. Brakes of bed on. --16:13 Thais Yoon R.N. 16:45 12/22/2016 Two (2) unsuccessful IV access attempts including the right forearm. --16:45 Thais Yoon R.N. 16:57 12/22/2016 Site #1 started via IV in the left antecubital space with an 20g angiocath; one attempt. Blood drawn: rainbow set. Labeled in the presence of the patient and sent to the lab. Saline lock flushed with 5 mL saline. --16:57 Thais Yoon R.N. <<STRICKEN ENTRY-- 16:57 12/22/2016 Dilaudid (HYDROmorphone HCl PF) IVP 1 mg given over 2 minute(s) via site #1. --16:57 Thais Yoon R.N. --END STRIKE>> Correction. --16:58 Thais Yoon R.N. 16:57 12/22/2016 Dilaudid (HYDROmorphone HCl PF) IVP 1 mg given over 2 minute(s) via site #1. Allergies verified, confirmed 5 rights and sedative warning given to the patient. IV patency established. IV site checked: no pain, redness, or swelling. IV flushed thoroughly pre- and post-medication administration. IVP given by RN. --16:58 Thais Yoon R.N. 17:08. Patient returned from radiology. --17:13 Thais Yoon R.N. 17:13 12/22/16. ( US in room). --17:13 Thais Yoon R.N. EKG time: (1640). EKG was ordered, performed by a tech and shown to the ED physician. --17:23 Mily Vega ER Tech1 16:13. Patient ID band checked for patient name and birthdate: patient confirmed. Clean catch urine collected with return of yellow-colored clear urine; sample sent to lab for urinalysis. Specimen labeled in the presence of the patient. --17:36 Thais Yoon R.N. 17:53 12/22/16. Patient ID band checked for patient name and birthdate. Patient verbalized understanding. Clean catch urine collected with return of yellow-colored clear urine; sample sent to lab for urinalysis. Specimen labeled in the presence of the patient (urine recollection.). --17:53 Thais Yoon R.N. 18:02 12/22/16. --18:02 Thais Yoon R.N. 18:01 12/22/16. BP: 129/89. HR: 94. RR: 18. O2 saturation: 97%. Temp: deferred. Pain level now: 05/06. --18:02 Thais Yoon R.N. 19:02 12/22/16. Care transferred and report given (to MAINOR Winslow). --19:02 Thais Yoon R.N. ( report received from [facility]). --19:07 Isac Palomo 18:13 12/22/2016 Site #2 started via IV in the right forearm with an 22g angiocath, with aseptic technique and good blood return; two attempts. Saline lock flushed with 10 mL saline (unable to draw blood). --19:13 Carlos A Watkins R.N. DISPOSITION / DISCHARGE 19:23 12/22/2016 Site #1 removed upon discharge. Catheter intact. Bandaid applied. --19:23 Isac Palomo 19:23 12/22/2016 Site #2 removed upon admission. Catheter intact. Bandaid applied. --19:23 Isac Palomo Departure time: 19:23. Condition at departure: improved. No learning barriers present. Discharge instructions provided and reviewed with the patient. Reviewed medication(s) side effects, precautions, dosing and course information. Prescription(s) given to the patient. Treatments reviewed. Reviewed referrals. Follow up contact number. Patient verbalized understanding. Written instructions provided in [place]ian. No warning instructions, diet instructions, activity restrictions or stop smoking instructions. No work note given or school note given. The patient was discharged by the physician social media assistant. She was discharged home and accompanied by family. She left the Emergency Department ambulatory and via private vehicle. Family member driving. ( NS fluids stopped at this time). FALL RISK ASSESSMENT: Fall risk assessment completed. No fall risk identified. --19:23 Isac Palomo 19:20 12/22/16. BP: 141/72. HR: 75. RR: 18. O2 saturation: 98%. Temp: deferred. Pain level now: 11/06. --19:23 Isac Palomo Locked/Released at 12/22/2016 19:24 by Isac Palomo
--- NOTE | 2016-12-22 19:37 | ED MED RECONCILIATION SUMMARY ---
Patient: KATIA HAYDEN Medication Reconciliation Report [facility] VisitID: [id number] [address] [place] [address] 56y, F Registration Date/Time: 12/22/2016 Weight: 90.7 kg Height/Length: 64 in. BMI: 34.3 ALLERGIES: Aspirin, Naproxen, NSAIDs The patient's Home Medications are listed below: THE FOLLOWING MEDICATIONS NEED TO BE RECONCILED: Effexor XR Oral LORazepam Oral Lyrica Oral Tramadol HCL Oral The source(s) of the original Home Medication information: Not obtained. The following Medications were given to the patient in the Emergency Department: Dilaudid [IVP] IVP 1 mg, administered: 12/22/2016 4:57:00 PM The following Medications were prescribed to the patient: Hydrocodone/APAP 5mg / 325mg: take 1 orally every 6 hours as needed for pain. Dispense ten (10). No refill. -- Mora Freitas, PRoseALucindaC
--- NOTE | 2016-12-22 19:37 | ED MED RECONCILIATION SUMMARY ---
Patient: KATIA HAYDEN Medication Reconciliation Report [facility] VisitID: [id number] [address] [place] [address] 56y, F Registration Date/Time: 12/22/2016 Weight: 90.7 kg Height/Length: 64 in. BMI: 34.3 ALLERGIES: Aspirin, Naproxen, NSAIDs The patient's Home Medications are listed below: THE FOLLOWING MEDICATIONS NEED TO BE RECONCILED: Effexor XR Oral LORazepam Oral Lyrica Oral Tramadol HCL Oral The source(s) of the original Home Medication information: Not obtained. The following Medications were given to the patient in the Emergency Department: Dilaudid [IVP] IVP 1 mg, administered: 12/22/2016 4:57:00 PM The following Medications were prescribed to the patient: Hydrocodone/APAP 5mg / 325mg: take 1 orally every 6 hours as needed for pain. Dispense ten (10). No refill. -- Mora Freitas, PRoseALucindaC
--- NOTE | 2016-12-22 19:37 | ED DISCHARGE INSTRUCTIONS ---
Patient: KATIA HAYDEN General Instructions [facility] VisitID: [id number] [place] [address] 56y, F Registration Date/Time: 12/22/2016 Acute right upper quadrant and right lower quadrant abdominal pain of unknown cause. INSTRUCTIONS Drink plenty of fluids. Prescription Medications: Hydrocodone/APAP 5mg / 325mg: take 1 orally every 6 hours as needed for pain. Dispense ten (10). No refill. Follow-up: Follow up with your doctor in three days. ADDITIONAL INFORMATION Abdominal Pain, Unknown Cause (Female) The exact cause of your abdominal (stomach) pain is not certain. This does not mean that this is something to worry about, or the right tests were not done. Everyone likes to know the exact cause of the problem, but sometimes with abdominal pain, there is no clear-cut cause, and this could be a good thing. The good news is that your symptoms can be treated, and you will feel better. Your condition does not seem serious now; however, sometimes the signs of a serious problem may take more time to appear. For this reason,it is important for you to watch for any new symptoms, problems,or worsening of your condition. Over the next few days, the abdominal pain may come and go, or be continuous. Other common symptoms can include nausea and vomiting. Sometimes it can be difficult to tell if you feel nauseous, you may just feel bad and not associate that feeling with nausea. Constipation, diarrhea, and a fever may go along with the pain. The pain may continue even if treated correctly over the following days. Depending on how things go, sometimes the cause can become clear and may require further or different treatment. Additional evaluations, medications, or tests may be needed. Home care Your health care provider may prescribe medications for pain, symptoms, or an infection. Follow the health care provider's instructions for taking these medications. General care Rest until your next exam. No strenuous activities. Try to find positions that ease discomfort. A small pillow placed on the abdomen may help relieve pain. Something warm on your abdomen (such as a heating pad) may help, but be careful not to burn yourself. Diet Do not force yourself to eat, especially if having cramps, vomiting, or diarrhea. Water is important so you do not get dehydrated. Soup may also be good. Sports drinks may also help, especially if they are not too acidic. Make sure you don't drink sugary drinks as this can make things worse. Take liquids in small amounts. Do not guzzle them. Caffeine sometimes makes the pain and cramping worse. Avoid dairy products if you have vomiting or diarrhea. Don't eat large amounts at a time. Wait a few minutes between bites. Eat a diet low in fiber (called a low-residue diet). Foods allowed include refined breads, white rice, fruit and vegetable juices without pulp, tender meats. These foods will pass more easily through the intestine. Avoid whole-grain foods, whole fruits and vegetables, meats, seeds and nuts, fried or fatty foods, dairy, alcohol and spicy foods until your symptoms go away. Follow-up care Follow up with your health care provider as instructed, or if your pain does not begin to improve in the next 24 hours. When to seek medical care Seek prompt medical care if any of the following occur: Pain gets worse or moves to the right lower abdomen New or worsening vomiting or diarrhea Swelling of the abdomen Unable to pass stool for more than three days Fever of 100.4F (38C) or higher, or as directed by your healthcare provider. Blood in vomit or bowel movements (dark red or black color) Jaundice (yellow color of eyes and skin) Weakness, dizziness Chest, arm, back, neck or jaw pain Unexpected vaginal bleeding or missed period Call 911 Call emergency services if any of the following occur: Trouble breathing Confusion Fainting or loss of consciousness Rapid heart rate Seizure Symptoms With Uncertain Cause [Adult] Based on the exam and any tests that were performed today, the exact cause of your symptoms is not certain. While your condition does not seem serious, the signs of a serious problem may take more time to appear. Therefore, it is important for you to watch for any new symptoms or worsening of your condition.Follow up with your doctor or this facility, as directed.A repeat physical exam or additional testing at a later time may uncover a cause for your symptoms that is not evident today. Home Care: Resume your usual activities and diet when this feels comfortable to do so. Follow Up with your doctor, or as advised by our staff.Contact your doctor sooner if your symptoms do not begin to improve in the next few days. [NOTE: If you had an x-ray, CT scan, ultrasound, or ECG (electrocardiogram), it will be reviewed by a specialist. You will be notified of any new findings that may affect your care.] Get Prompt Medical Attention if any of the following occur: Current symptoms get worse New symptoms appear [place] Diet A bland diet is used for patients with an upset stomach. It consists of foods that are mild and easy to digest. It is better to eat small frequent meals rather than three large meals a day. BEVERAGES OK: Fruit juices, non-caffeinated teas and coffee, non-carbonated vargas AVOID: Carbonated beverage, caffeinated tea and coffee, all alcoholic beverages BREAD OK: Refined white, wheat or rye bread, jonas or soda crackers, [place] toast, plain rolls, bagels AVOID: Whole-grain bread CEREAL OK: Refined cereals: cooked or ready to eat AVOID: Whole grain cereals and granola, or those containing bran, seeds or nuts DESSERTS OK: Peanut butter and all others except those to "avoid" AVOID: Chocolate, cocoa, coconut, popcorn, nuts, seeds, jam, marmalade FRUITS OK: Canned, cooked, frozen or fresh fruits without seeds or tough skin AVOID: Olives, skin and seeds of fruit MEATS OK: All fresh or preserved meat, fish and fowl AVOID: Any that are prepared with those spices to "avoid" CHEESE & EGGS OK: Eggs, cottage cheese, cream cheese, other cheeses AVOID: All cheeses made with those spices to "avoid" POTATOES & PASTA OK: Potato, rice, macaroni, noodles, spaghetti AVOID: None SOUPS OK: All soups without heavy seasoning AVOID: Soups made with those spices to "avoid" VEGETABLES OK: Canned, cooked, fresh or frozen mildly flavored vegetables without seeds, skins or coarse fiber AVOID: Vegetables prepared with those spices to "avoid"; skin and seeds of vegetables and those with coarse fiber SPICES OK: Salt, lemon and mentasta juice, vinegar, all extracts, jamal, cinnamon, thyme, mace, allspice, paprika AVOID: [place] powder, cloves, pepper, seed spices, garlic, gravy pickles, highly seasoned salad dressings Clear Liquid Diet Clear liquids are any liquid that you can see through as well as those that are very easy to digest. This is used while the body is recovering from irritation or infection of the stomach or intestinal tract. It may also be used before special procedures or surgery. This diet is to be used no more than three days. You may include the following items. Adults Adults should drink a total of 23 quarts of liquid per day. It may be easier to drink small frequent servings rather than a few large ones. Liquids can include: Fruit juices.Strained orange juice or lemonade (no pulp), apple, grape and cranberry juice, clear fruit drinks, sports drinks Beverages.Sport drinks, sodas, mineral water (plain or flavored), tea, black coffee, liquid gelatin (add twice the recommended amount of water) Soups.Clear broth, consomm, bouillon Desserts.Plain gelatin, popsicles, fruit juice bars Children Over 2 years old The following liquids are acceptable for children over age 2: Fruit juices.Strained orange juice or lemonade (no pulp), apple, grape and cranberry juice, clear fruit drinks Beverages. Sports drinks, sodas, mineral water (plain or flavored), tea, liquid gelatin (add twice the recommended amount of water) Soups. Clear broth, consomm, bouillon Desserts. Plain gelatin, popsicles, fruit juice bars Children under 2 years old Oral rehydration fluids such are available at drug stores and most grocery stores without a prescription. Hydrocodone Bitartrate, Acetaminophen Oral tablet What is this medicine? ACETAMINOPHEN; HYDROCODONE (a set a FRANCISCA jamal fen; dian droe KOE done) is a pain reliever. It is used to treat mild to moderate pain. How should I use this medicine? Take this medicine by mouth. Swallow it with a full glass of water. Follow the directions on the prescription label. If the medicine upsets your stomach, take the medicine with food or milk. Do not take more than you are told to take. Talk to your acquisitions editor regarding the use of this medicine in children. This medicine is not approved for use in children. What side effects may I notice from receiving this medicine? Side effects that you should report to your doctor or health residential care officer as soon as possible: allergic reactions like skin rash, itching or hives, swelling of the face, lips, or tongue breathing problems confusion feeling faint or lightheaded, falls stomach pain yellowing of the eyes or skin Side effects that usually do not require medical attention (report to your doctor or health residential care officer if they continue or are bothersome): nausea, vomiting stomach upset What may interact with this medicine? alcohol antihistamines isoniazid medicines for depression, anxiety, or psychotic disturbances medicines for sleep muscle relaxants naltrexone narcotic medicines (opiates) for pain phenobarbital ritonavir tramadol What if I miss a dose? If you miss a dose, take it as soon as you can. If it is almost time for your next dose, take only that dose. Do not take double or extra doses. Where should I keep my medicine? Keep out of the reach of children. This medicine can be abused. Keep your medicine in a safe place to protect it from theft. Do not share this medicine with anyone. Selling or giving away this medicine is dangerous and against the law. Store at room temperature between 15 and 30 degrees C (59 and 86 degrees F). Protect from light. Keep container tightly closed. Throw away any unused medicine after the expiration date. Discard unused medicine and used packaging carefully. Pets and children can be harmed if they find used or lost packages. What should I tell my health care provider before I take this medicine? They need to know if you have any of these conditions: brain tumor Crohn's disease, inflammatory bowel disease, or ulcerative colitis drink more than 3 alcohol-containing drinks per day drug abuse or addiction head injury heart or circulation problems kidney disease or problems going to the bathroom liver disease lung disease, asthma, or breathing problems an unusual or allergic reaction to acetaminophen, hydrocodone, other opioid analgesics, other medicines, foods, dyes, or preservatives or trying to get breast-feeding What should I watch for while using this medicine? Tell your doctor or health residential care officer if your pain does not go away, if it gets worse, or if you have new or a different type of pain. You may develop tolerance to the medicine. Tolerance means that you will need a higher dose of the medicine for pain relief. Tolerance is normal and is expected if you take the medicine for a long time. Do not suddenly stop taking your medicine because you may develop a severe reaction. Your body becomes used to the medicine. This does NOT mean you are addicted. Addiction is a behavior related to getting and using a drug for a non-medical reason. If you have pain, you have a medical reason to take pain medicine. Your doctor will tell you how much medicine to take. If your doctor wants you to stop the medicine, the dose will be slowly lowered over time to avoid any side effects. You may get drowsy or dizzy when you first start taking the medicine or change doses. Do not drive, use machinery, or do anything that may be dangerous until you know how the medicine affects you. Stand or sit up slowly. There are different types of narcotic medicines (opiates) for pain. If you take more than one type at the same time, you may have more side effects. Give your health care provider a list of all medicines you use. Your doctor will tell you how much medicine to take. Do not take more medicine than directed. Call emergency for help if you have problems breathing. The medicine will cause constipation. Try to have a bowel movement at least every 2 to 3 days. If you do not have a bowel movement for 3 days, call your doctor or health residential care officer. Too much acetaminophen can be very dangerous. Do not take Tylenol (acetaminophen) or medicines that contain acetaminophen with this medicine. Many non-prescription medicines contain acetaminophen. Always read the labels carefully. You have been given the following additional information: Abdominal Pain, Unknown Cause, (Female) Symptoms With Uncertain Cause Diet, [place] (Adult) Diet, Clear Liquid Hydrocodone Bitartrate, Acetaminophen Oral tablet (Electronically signed by Mora Freitas P.A.-C 12/22/2016 19:37)
--- NOTE | 2016-12-22 19:37 | ED MAR SUMMARY ---
..... Medication Administration Record [facility] [address] [place] [address] Patient: KATIA HAYDEN Visit ID: [id number] 56y, F Weight: 90.7 kg Height/Length: 64 in BMI: 34.3 ALLERGIES: Aspirin, Naproxen, NSAIDs Given 16:57 12/22/2016 Thais Yoon R.N. Medication Administered: DILAUDID [IVP] (HYDROMORPHONE HCL PF), Dose: 1 mg IVP over 2 minute(s), Site: #1 left AC. Medication Ordered: Dilaudid IV 1 mg (HIGH ALERT MEDICATION, NOW).
--- NOTE | 2016-12-22 19:37 | ED MAR SUMMARY ---
..... Medication Administration Record [facility] [address] [place] [address] Patient: KATIA HAYDEN Visit ID: [id number] 56y, F Weight: 90.7 kg Height/Length: 64 in BMI: 34.3 ALLERGIES: Aspirin, Naproxen, NSAIDs Given 16:57 12/22/2016 Thais Yoon R.N. Medication Administered: DILAUDID [IVP] (HYDROMORPHONE HCL PF), Dose: 1 mg IVP over 2 minute(s), Site: #1 left AC. Medication Ordered: Dilaudid IV 1 mg (HIGH ALERT MEDICATION, NOW).
== END 2016-12-22 19:10 | disposition home or self-care (01) ==
LOC: ED SRH 15:50
DX: R10.31 Right lower quadrant pain (principal); R10.11 Right upper quadrant pain; I10 Essential (primary) hypertension; E11.9 Type 2 diabetes mellitus without complications; Z79.899 Other long term (current) drug therapy; Z88.6 Allergy status to analgesic agent; Z88.4 Allergy status to anesthetic agent
CPT/HCPCS: 90004; 90100; 90616; 91585; 92031; 92235; 92530; 92610; 92720; 92760; 92761; 92762; 92763; 92764; 92765; 92766; 92767; 93004; 93070; 94001; 94060; 95059; 95150